=== PATIENT | male | born 1955 | race Caucasian/White ===

== ENCOUNTER 2019-08-09 17:25 | Emergency (ER) | payer OTHER, SELFPAY ==
[2019-08-09 17:31] VITALS: BP 181/83; PULSE 101; RESP 20; TEMP 36.6; O2SAT 99; BMI 27.4
[2019-08-09 18:06] LABS: Add Manual Diff / Slide Review NO; Basophils Absolute Auto 0 /uL (0-100); Basophils Percent Auto 0.5 % (0-2); Eosinophils Absolute Auto 200 /uL (0-450); Eosinophils Percent Auto 3.3 % (2-4); Hematocrit 47.8 % (41-53); Hemoglobin 16.4 g/dL (13.5-17.5); Lymphocytes Absolute Auto 1100 /uL (1100-4500); Lymphocytes Percent Auto 19.8 % (25-40); Mean Corpuscular HGB Conc 34.3 % (30-36); Mean Corpuscular Hemoglobin 32.6 PG (26-34); Mean Corpuscular Volume 95.2 fL (80-100); Monocytes Absolute Auto 400 /uL (0-900); Monocytes Percent Auto 7.5 % (3-14); Neutrophils Absolute Auto 4000 /uL (1500-7000); Neutrophils Percent Auto 68.9 % (50-75); Platelet Count 272 X10^3/uL (150-400); Red Blood Cell Count 5.03 X10^6/uL (4.5-5.9); Red Cell Distribution Width 14.3 % (11.6-14.8); White Blood Cell Count 5.8 X10^3/uL (4.5-11.0)
[2019-08-09 18:08] LABS: Alanine Aminotransferase 37 IU/L (21-72); Albumin 4.2 g/dL (3.5-5.0); Albumin Globulin Ratio 1.3 (1.0-2.8); Alkaline Phosphatase 81 U/L (38-126); Aspartate Aminotransferase 75 IU/L (17-59); Bilirubin Total 0.6 mg/dL (0.2-1.3); Blood Urea Nitrogen 14 mg/dL (9-20); Calcium 9.7 mg/dL (8.4-10.2); Carbon Dioxide 27 mmol/L (22-32); Chloride 100 mmol/L (98-107); Estimated Glomerular Filt Rate > 60.0 mL/min (>60); Globulin 3.2 g/dL (1.7-4.1); Glucose 155 mg/dL (80-110); HEMOLYSIS < 15 (0-50); Potassium 3.8 mmol/L (3.4-5.1); Sodium 142 mmol/L (137-145); Total Protein 7.4 g/dL (6.3-8.2)
[2019-08-09 18:10] LABS: INR 0.8 (0.9-1.3); Prothrombin Time 9.6 SECONDS (10.1-12.7)
[2019-08-09 18:13] LABS: PTT Partial Thromboplastin Tim 29 SECONDS (26.4-36.2)
--- NOTE | 2019-08-09 18:41 | ED_ITS ---
HPI - Abdominal Pain General Chief Complaint: Abdominal Pain Stated Complaint: states anemic Time Seen by Provider: 08/09/19 18:22 Source: patient and family () Mode of arrival: Ambulatory Limitations: no limitations History of Present Illness HPI narrative: This is a 64-year-old male who comes the emergency department stating he thinks that he is anemic. Patient states he has not felt well for the last several months and he has had increasingly felt, he just can't get up, he states does not have any get up and go. He states that he has been leaving work early. Kenji even trying to come the emergency department took his several hours to convince him to come in. Patient states that he has had a history of anemia. This was secondary to GI bleeds from ulcers back in his 20s. He states that he has issues where his gums bleed a lot when he brushes his teeth. He felt very cold in general. His states that he has easy gag reflex but he has not been actively vomiting at any point. Patient states his stools run from constipated diarrhea in back. He has had some slightly increasing frequency over the years with urination but no other changes to urine. He sometimes will have dark stools but the last 1 was months ago this. Patient does not have any swelling in his extremities. he has a description of left chest pain but states that that was ?a long time ago when he lived had [facility] address. Has a history of ulcers, he has had an appendectomy. Quit smoking tobacco many years ago. He drinks 3-6 drinks of hard liquor daily, but denies any illicit. He is to have a PCP but has not followed up in 5 years. He lives with his who is at bedside. 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 Patient does not feel that this is related to his depression. Related Data Allergies Allergy/AdvReac Type Severity Reaction Status Date / Time No Known Drug Allergies Allergy Verified 08/09/19 17:37 Review of Systems Review of Systems ROS Unobtainable: All systems reviewed & are unremarkable except as noted in HPI and below PFSH Surgical History (Updated 08/09/19 @ 19:18 by Sherrell May DO) Hx of appendectomy (Acute) Social History (Updated 08/09/19 @ 19:18 by Sherrell May DO) marital status: Smoking Status: Never smoker alcohol intake: current substance use type: does not use Social History (Updated 08/09/19 @ 19:18 by Sherrell May DO) marital status: Smoking Status: Never smoker alcohol intake: current substance use type: does not use Exam Narrative Exam Narrative: GENERAL: Alert and oriented x three, in mild distress. HEENT: Head normocephalic, atraumatic, EOMI, pupils reactive, face symmetric, no petechiae, no ulcerations, moist mucous membranes NECK: Supple, full range of motion CARDIOVASCULAR: Regular rate and rhythm without murmurs, rubs or gallops. RESPIRATORY: Breath sounds equal bilaterally, no wheezes rales or rhonchi. No tachypnea, no accessory muscle use. ABDOMEN: Soft, nontender. Normoactive bowel sounds all 4 quadrants. No guarding or rebound, rigidity, no mass : No CVA tenderness EXTREMITIES: Normal range of motion, no clubbing or edema. Neurovascularly intact NEUROLOGICAL: Cranial nerves II through XII grossly intact. Moving all extremities SKIN: Warm, dry, no petechiae, no rashes or lesions. Initial Vital Signs Initial Vital Signs: Vital Signs Temperature 97.9 F 08/09/19 17:31 Pulse Rate 101 H 08/09/19 17:31 Respiratory Rate 20 08/09/19 17:31 Blood Pressure 181/83 H 08/09/19 17:31 Pulse Oximetry 99 08/09/19 17:31 Course Orders Ordered: ED Orders 08/09/19 19:19 XR chest 2V Stat Vital Signs Vital signs: Vital Signs - 8 hr 08/09/19 20:15 Pulse Rate 95 H Respiratory Rate 16 Blood Pressure 179/99 H Pulse Oximetry 95 MDM - Abdominal Pain Lab Data Attestation: I reviewed the patient's lab results. Result diagrams: 08/09/19 17:45 08/09/19 17:45 Labs: Lab Results 08/09/19 08/09/19 08/09/19 Range/Units 17:41 17:45 17:45 WBC 5.8 (4.5-11.0) X10^3/uL RBC 5.03 (4.5-5.9) X10^6/uL Hgb 16.4 (13.5-17.5) g/dL Hct 47.8 (41-53) % MCV 95.2 (80-100) fL MCH 32.6 (26-34) PG MCHC 34.3 (30-36) % RDW 14.3 (11.6-14.8) % Plt Count 272 (150-400) X10^3/uL Neut % (Auto) 68.9 (50-75) % Lymph % (Auto) 19.8 L (25-40) % Davie % (Auto) 7.5 (3-14) % Eos % (Auto) 3.3 (2-4) % Baso % (Auto) 0.5 (0-2) % Neut # (Auto) 4000 (4835-2004) /uL Lymph # (Auto) 1100 (6652-9231) /uL Davie # (Auto) 400 (0-900) /uL Eos # (Auto) 200 (0-450) /uL Baso # (Auto) 0 (0-100) /uL PT 9.6 L (10.1-12.7) SECONDS INR 0.8 L (0.9-1.3) APTT 29 (26.4-36.2) SECONDS Sodium (137-145) mmol/L Potassium (3.4-5.1) mmol/L Chloride (98-107) mmol/L Carbon Dioxide (22-32) mmol/L BUN (9-20) mg/dL Creatinine (0.66-1.25) mg/dL Estimated GFR (>60) mL/min BUN/Creatinine Ratio (6-22) Glucose (80-110) mg/dL Calcium (8.4-10.2) mg/dL Total Bilirubin (0.2-1.3) mg/dL AST (17-59) IU/L ALT (21-72) IU/L Alkaline Phosphatase (38-126) U/L Total Creatine Kinase (55-170) U/L CK-MB (CK-2) CK-MB (CK-2) Rel Index Troponin I (0.01-0.034) ng/mL Total Protein (6.3-8.2) g/dL Albumin (3.5-5.0) g/dL Globulin (1.7-4.1) g/dL Albumin/Globulin Ratio (1.0-2.8) Lipase 168 (23-300) U/L TSH (0.47-4.68) uIU/mL Blood Type Antibody Screen 08/09/19 08/09/19 08/09/19 Range/Units 17:45 17:45 17:45 WBC (4.5-11.0) X10^3/uL RBC (4.5-5.9) X10^6/uL Hgb (13.5-17.5) g/dL Hct (41-53) % MCV (80-100) fL MCH (26-34) PG MCHC (30-36) % RDW (11.6-14.8) % Plt Count (150-400) X10^3/uL Neut % (Auto) (50-75) % Lymph % (Auto) (25-40) % Davie % (Auto) (3-14) % Eos % (Auto) (2-4) % Baso % (Auto) (0-2) % Neut # (Auto) (1564-5360) /uL Lymph # (Auto) (9103-1380) /uL Davie # (Auto) (0-900) /uL Eos # (Auto) (0-450) /uL Baso # (Auto) (0-100) /uL PT (10.1-12.7) SECONDS INR (0.9-1.3) APTT (26.4-36.2) SECONDS Sodium 142 (137-145) mmol/L Potassium 3.8 (3.4-5.1) mmol/L Chloride 100 (98-107) mmol/L Carbon Dioxide 27 (22-32) mmol/L BUN 14 (9-20) mg/dL Creatinine 0.70 (0.66-1.25) mg/dL Estimated GFR > 60.0 (>60) mL/min BUN/Creatinine Ratio 20.0 (6-22) Glucose 155 H (80-110) mg/dL Calcium 9.7 (8.4-10.2) mg/dL Total Bilirubin 0.6 (0.2-1.3) mg/dL AST 75 H (17-59) IU/L ALT 37 (21-72) IU/L Alkaline Phosphatase 81 (38-126) U/L Total Creatine Kinase 87 (55-170) U/L CK-MB (CK-2) TNP CK-MB (CK-2) Rel Index TNP Troponin I < 0.012 (0.01-0.034) ng/mL Total Protein 7.4 (6.3-8.2) g/dL Albumin 4.2 (3.5-5.0) g/dL Globulin 3.2 (1.7-4.1) g/dL Albumin/Globulin Ratio 1.3 (1.0-2.8) Lipase (23-300) U/L TSH (0.47-4.68) uIU/mL Blood Type O Positive Antibody Screen Negative 08/09/19 Range/Units 17:45 WBC (4.5-11.0) X10^3/uL RBC (4.5-5.9) X10^6/uL Hgb (13.5-17.5) g/dL Hct (41-53) % MCV (80-100) fL MCH (26-34) PG MCHC (30-36) % RDW (11.6-14.8) % Plt Count (150-400) X10^3/uL Neut % (Auto) (50-75) % Lymph % (Auto) (25-40) % Davie % (Auto) (3-14) % Eos % (Auto) (2-4) % Baso % (Auto) (0-2) % Neut # (Auto) (8716-0581) /uL Lymph # (Auto) (7538-7132) /uL Davie # (Auto) (0-900) /uL Eos # (Auto) (0-450) /uL Baso # (Auto) (0-100) /uL PT (10.1-12.7) SECONDS INR (0.9-1.3) APTT (26.4-36.2) SECONDS Sodium (137-145) mmol/L Potassium (3.4-5.1) mmol/L Chloride (98-107) mmol/L Carbon Dioxide (22-32) mmol/L BUN (9-20) mg/dL Creatinine (0.66-1.25) mg/dL Estimated GFR (>60) mL/min BUN/Creatinine Ratio (6-22) Glucose (80-110) mg/dL Calcium (8.4-10.2) mg/dL Total Bilirubin (0.2-1.3) mg/dL AST (17-59) IU/L ALT (21-72) IU/L Alkaline Phosphatase (38-126) U/L Total Creatine Kinase (55-170) U/L CK-MB (CK-2) CK-MB (CK-2) Rel Index Troponin I (0.01-0.034) ng/mL Total Protein (6.3-8.2) g/dL Albumin (3.5-5.0) g/dL Globulin (1.7-4.1) g/dL Albumin/Globulin Ratio (1.0-2.8) Lipase (23-300) U/L TSH 0.69 (0.47-4.68) uIU/mL Blood Type Antibody Screen Imaging Data Chest x-ray: Radiologist's impression: Diogenes Lobato M [address] [address] XRay Report Signed Patient: Diogenes Lobato AMR#: [id number] : 1955cct:[id number] Age/Sex: 64 / MDate of Service: 08/09/19 Loc: ED Accession Number: [id number] Procedure: XR chest 2V Ordering Provider: Sherrell May D.O. PROCEDURE: XR CHEST 2V INDICATIONS: tired all the time, hx of tob use TECHNIQUE: 2 views of the chest were acquired. COMPARISON: [facility], CR, ABDOMEN ACUTE SERIES, 02/23/2008, 20:14. FINDINGS: Surgical changes and devices: None. Lungs and pleura: Lungs are clear. No pleural effusions or pneumothorax. Mediastinum: Mediastinal contours are normal. Heart size is normal. Bones and chest wall: No suspicious bony abnormalities. Soft tissues appear unremarkable. IMPRESSION: No acute process. Dictated by: Katie Robb M.D. on 08/09/2019 at 19:45 Approved by: Katie Robb M.D. on 08/09/2019 at 19:46 ECG Data Attestation: I personally reviewed and interpreted this ECG as follows: Prior ECG tracings: available for review Interpretation: Sinus tachycardia 104 P are 159 QRS 85 QTC of 404 with nonspecific change. EKG appears similar to 03/11/2010. MDM Narrative Medical decision making narrative: Patient comes in complaining and concern for recurrence of anemia which he has had a past secondary to gastric or duodenal ulcers. Patient's hemoglobin is normal. He is slightly tachycardic and hypertensive. Patient's CV she shows a slightly low lymphocytes, PTT 9.6 with INR of 0.8 with a normal range of 0.9-1.3 and a normal PTT, chemistries show glucose of 155 with an AST elevated at 75 and no other abnormalities. Troponin is negative and TSH normal range. Chest x-ray shows no acute process. Discussed with patient and family am not finding any acute findings. Patient does drink to excess on this may be related to his symptoms as well. He is little bit tachycardic and hypertensive although he denies any prior history of withdrawals and states that he does not drink every single day and has not had withdrawal symptoms in the past. We discussed possible options and he has follow-up with primary care but not until September 04. Was asked to call to set up an appointment sooner. Discharge Plan Departure Patient Disposition: Home Clinical Impression: Fatigue Discharge Date/Time: 08/09/19 20:15 Instructions: DI for Fatigue Activity Restrictions/Additional Instructions: Follow-up with primary care I would recommend calling to see if you could have a earlier appointment time. I would recommend decreasing your alcohol intake as this may be exacerbating your symptoms. Return to the emergency department for fevers greater 100.4 F, passing out, new chest pain or pressure, persistent shortness of breath, persistent vomiting, new swelling in her extremities or other new or concerning symptoms. Referrals: Dixie Snider PA-C [Primary Care Provider] - Leander Randolph MD [Physician] -
[2019-08-09 18:54] LABS: Lipase 168 U/L (23-300)
[2019-08-09 19:09] LABS: Creatine Kinase 87 U/L (55-170)
--- NOTE | 2019-08-09 19:19 | DI.RAD.S_ITS ---
PROCEDURE: XR CHEST 2V INDICATIONS: tired all the time, hx of tob use TECHNIQUE: 2 views of the chest were acquired. COMPARISON: [facility], CR, ABDOMEN ACUTE SERIES, 02/23/2008, 20:14. FINDINGS: Surgical changes and devices: None. Lungs and pleura: Lungs are clear. No pleural effusions or pneumothorax. Mediastinum: Mediastinal contours are normal. Heart size is normal. Bones and chest wall: No suspicious bony abnormalities. Soft tissues appear unremarkable. IMPRESSION: No acute process. Dictated by: Katie Robb M.D. on 08/09/2019 at 19:45 Approved by: Katie Robb M.D. on 08/09/2019 at 19:46
[2019-08-09 19:22] LABS: Troponin I < 0.012 ng/mL (0.01-0.034)
[2019-08-09 19:54] LABS: Thyroid Stimulating Hormone 0.69 uIU/mL (0.47-4.68)
[2019-08-09 20:15] VITALS: BP 179/99; PULSE 95; RESP 16; O2SAT 95
== END 2019-08-09 20:15 | disposition home or self-care (01) ==
PROVIDERS: Emergency Medicine; Emergency Provider Emergency Medicine; Family Provider Internal Medicine; PCP Internal Medicine
DX: R53.83 Other fatigue (principal); R00.0 Tachycardia, unspecified
CPT/HCPCS: 36415; 71046; 80053; 82550; 83690; 84443; 84484; 85025; 85610; 85730; 86850; 86900; 86901; 93005; 99282; 99285

== ENCOUNTER 2020-07-12 00:43 | Emergency (ER) | payer OTHER, SELFPAY ==
[2020-07-12 01:06] VITALS: BP 145/80; PULSE 98; RESP 16; TEMP 36.9; O2SAT 96; BMI 25.8
--- NOTE | 2020-07-12 01:18 | DI.RAD.S_ITS ---
PROCEDURE: XR ANKLE LT MIN 3V INDICATIONS: trauma, pain, edema TECHNIQUE: 3 views of the ankle were acquired. COMPARISON: None. FINDINGS: Bones: Fractures of the medial malleolus, lateral malleolus and posterior malleolus noted. The talus is mildly displaced laterally. Soft tissues: No tibiotalar joint effusion. Achilles tendon appears normal. Circumferential soft tissue swelling. IMPRESSION: Left ankle fracture dislocation. Dictated by: Niki Lea MD, PhD on 07/12/2020 at 8:50 Approved by: Niki Lea MD, PhD on 07/12/2020 at 8:51
--- NOTE | 2020-07-12 01:18 | DI.RAD.S_ITS ---
PROCEDURE: XR FOOT LT MIN 3V INDICATIONS: trauma, pain, edema TECHNIQUE: 3 views of the foot were acquired. COMPARISON: None. FINDINGS: Bones: No foot fractures or dislocations. Trimalleolar left ankle fracture described in detail in the dedicated ankle series redemonstrated. No suspicious bony lesions. Soft tissues: No tibiotalar joint effusion. Achilles tendon appears normal. IMPRESSION: No foot fracture. No foot osseous lesion. If symptoms and/or clinical suspicion for pathology persists, further assessment with repeat radiographs (7-10 days) or advanced imaging (e.g. CT, MRI or bone scan) may be helpful. Dictated by: Niki Lea MD, PhD on 07/12/2020 at 8:51 Approved by: Niki Lea MD, PhD on 07/12/2020 at 8:52
--- NOTE | 2020-07-12 01:19 | ED.LOWEXIN ---
HPI - Extremity Injury (Lower) General Chief Complaint: Extremity Injury, Lower Stated Complaint: left ankle swelling 1 week/fall at home Time Seen by Provider: 07/12/20 00:54 Source: patient and family Mode of arrival: Wheelchair History of Present Illness HPI Narrative: 65-year-old gentleman with no significant medical history presents 8 days after injuring his left foot and ankle. They are in the process of moving and he stumbled over a box landing on the left foot and ankle. He described it is a twisting painful movement. He has used Aleve, elevation and ice. He did try an Roi wrap but found that it was too painful to continue using that. He did continue to work which include standing much of the day and walking on a concrete floor. He was able to walk but is finding it more and more painful. At this point so tender he does not want anything touching at all including his pant leg. The ecchymosis that he described over the outer edge of his foot and ankle has improved significantly there is a bit of ecchymosis extending up the calf with a moderate amount of edema a from the mid calf all the way through to the toes. Related Data Previous Rx's Medication Instructions Recorded oxycodone-acetaminophen 1 - 2 tab PO Q6H PRN #20 tab 07/12/20 Allergies Allergy/AdvReac Type Severity Reaction Status Date / Time No Known Drug Allergies Allergy Verified 08/09/19 17:37 Review of Systems Review of Systems Narrative: Pertinent positive and negative findings as per HPI Remainder of review of systems is otherwise unremarkable for Constitutional: Fevers, chills, weakness ENT: No sore throat, neck pain, ear pain CV: Chest pain, palpitations, dyspnea on exertion Respiratory: Cough, wheeze, dyspnea GI: Nausea, vomiting, diarrhea, change in bowel habits, black or bloody stools : Dysuria, hematuria, flank pain Skin: Rashes, nonhealing lesions Neuro: Syncope, dizziness, tingling Patient History Surgical History Hx of appendectomy (Acute) Social History marital status: Smoking Status: Never smoker alcohol intake: current substance use type: does not use Smoking Status: Never smoker alcohol intake frequency: 0-2 drinks per day Substance Use Type: does not use Exam Narrative Exam Narrative: General: Alert appropriate in no acute distress Respiratory: Able to speak in full sentences, no obvious respiratory distress Skin: No obvious rashes, warm and dry Neurologic: Grossly intact no obvious asymmetries or abnormalities Psych, appropriate insight and affect, cooperative Extremity: Left foot and ankle significantly edematous with tenderness over the midfoot, calcaneus and bilateral malleoli. Increasing tenderness to the slightest touching of his skin surface at all. There is no obvious skin breakdown and he does have good capillary refill distally. At this point he is no longer able to even take a step with the foot. There is no pain or injury to the knee hip low back or upper extremities. Initial Vital Signs Initial Vital Signs: Vital Signs Temperature 98.4 F 07/12/20 01:06 Pulse Rate 98 H 07/12/20 01:06 Respiratory Rate 16 07/12/20 01:06 Blood Pressure 145/80 H 07/12/20 01:06 Pulse Oximetry 96 07/12/20 01:06 Procedures Orthopedic Splinting/Casting Ankle fracture: Side: left Lower Extremity Injury Location: ankle Lower Extremity Immobilizer: boot orthosis Post splinting neuro exam: intact Post splinting vascular exam: intact Placed by: Provider Additional Comments: Tolerating placement of the boot Course Orders Ordered: ED Orders 07/12/20 01:18 XR ankle LT min 3V Stat XR foot LT min 3V Stat Discontinued Medications Oxycodone/Acetaminophen (Percocet 5/325) 1 tab PO NOW ONE Stop: 07/12/20 01:19 Last Admin: 07/12/20 01:33 Dose: 1 tab Documented by: MMCFARL Oxycodone/Acetaminophen (Endocet 5/325 Prepack) 1 bottle MISC SEEINSTR ONE Stop: 07/12/20 02:03 Vital Signs Vital signs: Vital Signs - 8 hr 07/12/20 01:06 Temperature 98.4 F Pulse Rate 98 H Respiratory Rate 16 Blood Pressure 145/80 H Pulse Oximetry 96 MDM - Extremity Injury (Lower) Medical Records Attestation: I reviewed the patient's medical records. Imaging Data X-ray foot: Attestation: I personally reviewed and interpreted this imaging study as follows: My Impression: No acute foot injuries X-ray ankle: Attestation: I personally reviewed and interpreted this imaging study as follows: My Impression: 1. Distal tibial/medial malleolus fracture, minimally displaced 2. Distal fibular/lateral malleolus fracture, displaced comminuted minimally angulated MDM Narrative Medical decision making narrative: 65-year-old gentleman with distal tib and fibular fractures. Injury occurred 8 days ago. He is so swollen and so tender that he does not even want his pant leg touching his foot and he has not tolerated even an Rio wrap. Reluctant to place a short-leg posterior splint due to pain concerns. He is placed and a walking boot and instructed to avoid weight-bearing until he has been seen by Orthopedic surgery. They do have crutches available to them that he has been using this week. Reviewed concerns, importance of follow-up for definitive fracture care, and pain control Safe for home discharge Discharge Plan Departure Patient Disposition: Home Clinical Impression: Ankle fracture Qualifiers: Encounter type: initial encounter Fracture type: closed Laterality: left Qualified Code(s): S82.892A - Other fracture of left lower leg, initial encounter for closed fracture Instructions: DI for Fracture Activity Restrictions/Additional Instructions: Thank you for coming in tonight It turns out that you broke not one, but two bones in your ankle. With the amount of swelling and severe tenderness that you have just touching the skin I opted to put you in an immobilizing boot as a splint rather than are more typical cast like splints. If there is more swelling or the boot feels too tight I do want you to have the option of releasing some of the tension. You will need to follow-up with Dr. Traore, our orthopedist surgeon on-call today. Please call tomorrow to schedule an appointment within the next week. You may end up needing surgery, but the orthopedic surgeon will need to examine you to help determine that. In the meantime, please do continue using the naproxen sodium and with that you can also use 1-2 Percocet every 6 hours for pain. Percocet has narcotic and will make you constipated so please make sure you add a stool softener every day that you take a Percocet. Continuing to keep the ankle and foot elevated and ice on the outside of the splint will be helpful. I would recommend that you not walk on that foot until you have been further evaluated by the orthopedic surgeon. If you have worsening symptoms or new issues that arise, please feel free to return to the emergency department for further evaluation. I hope you heal quickly and your moved to [facility] go smoothly. Prescriptions: New oxycodone-acetaminophen 5-325 mg tablet 1 - 2 tab PO Q6H PRN (Reason: pain) Qty: 20 RF: 0 Referrals: Dixie Snider PA-C [Primary Care Provider] - Edilberto Traore MD [Physician] -
[2020-07-12] MEDS: OXYCODONE/ACETAMINOPHEN 5/325 TABLET 1 TAB PO (01:33)
[2020-07-12] MEDS: OXYCODONE/APAP 5/325 PREPACK 1 BOTTLE MISC (02:11)
== END 2020-07-12 02:20 | disposition home or self-care (01) ==
PROVIDERS: Emergency Provider Emergency Medicine; Family Provider Internal Medicine; PCP Internal Medicine
DX: S82.892A Other fracture of left lower leg, initial encounter for closed fracture (principal); W19.XXXA Unspecified fall, initial encounter
CPT/HCPCS: 73610; 73630; 99283

== ENCOUNTER → 2020-07-17 14:56 | Outpatient (CLI) | payer OTHER, SELFPAY ==
[2020-07-18 15:48] LABS: COVID19 Sendout Not Detected (Not Detect)
== END ==
PROVIDERS: PCP Internal Medicine; Visit Provider Physician Assistant
DX: Z11.59 Encounter for screening for other viral diseases (principal)
CPT/HCPCS: 87635

== ENCOUNTER 2020-07-19 10:25 | Day surgery (SDC) | payer OTHER, SELFPAY ==
[2020-07-16 15:26] VITALS: BMI 25.0
[2020-07-19] VITALS (11 sets, daily range): BP systolic 137–171; BP diastolic 69–87; PULSE 86–96; RESP 12–17; TEMP 36.2–36.8; O2SAT 91–96; BMI 25.8
--- NOTE | 2020-07-19 10:39 | PM.PREOP ---
Pre-operative Note COVID-19 COVID-19 status: Negative Interval Note History & Physical reviewed/Exam performed by Physician: Yes Changes to H&P: No
--- NOTE | 2020-07-19 10:39 | PM.OP.1 ---
Operative Date/Time/Diagnoses Date of procedure: 07/19/20 Time of procedure: 11:40 Pre-op diagnosis: Comminuted left bimalleolar fracture Post-op diagnosis: same Procedure & Clinicians Procedure: Open reduction internal fixation comminuted left bimalleolar fracture Same procedure as scheduled: Yes Indications: This is a 65-year-old gentleman who has a history of a fall and several injuries which date back to 07/03/2020 who presented with a bimalleolar ankle fracture and ongoing pain and difficulty with weight-bearing. Surgeon: Angela Godinez Anesthesia Type: General Operative Notes Closure Type: primary Specimen(s): none sent Prosthetic devices, grafts, tissues, transplants, or devices: nonlocking plate AO Estimated Blood Loss (mL): 200 Tourniquet time (min): 70 Procedure in detail: Patient is brought to the operating room he underwent the induction of a general anesthesia. His left lower extremity was prepped and draped in standard sterile fashion. IV antibiotics was given. Time-out was performed. Tourniquet was elevated to 250 mm of mercury after prepping and draping sterilely. Lateral skin incision was made dissection was carried out through skin and subcutaneous tissues. Gelpi retractors were placed. He had a comminuted fibular fracture which was meticulously fixed with a 7 hole plate. His fracture clearly had partially healed and it was starting to healing in a grossly malunited position. There was comminution off of the anterior aspect of the fibula. I meticulously reduced the fracture basically taking apart the fracture free it up along the fibula distally and and worked hard to get the fibula back out to length after cleaning the lateral gutter. I also opened the medial fracture fragment and anatomically reduced the medial malleolus as well as cleaning out along the medial aspect of the medial fragment in order to allow for reduction of the mortise. The medial side was temporarily stabilized with a K-wire. I then went back and meticulously fixed the fibula. And then returned again to the medial side in order to further stabilizing it with 2 screws. The mortise was checked and noted to be stable on fluoroscopy. The wounds were meticulously irrigated with normal saline. Fluoro showed anatomic reduction in AP lateral and mortise and the wound was closed with interrupted Vicryl and skin soniya. Wound was dressed sterilely and placed in a short-leg bulky Rosen. Postoperative plan nonweightbearing on the left lower extremity. Complications: none Post-operative Condition: stable Disposition: same day surgery Plan for aftercare: Nonweightbearing on the left lower extremity. Return to clinic and 10-14 days for x-rays out of plaster and application of a short-leg cast.
[2020-07-19] MEDS: LACTATED RINGERS 1,000 ML 42 ML IV (10:54)
[2020-07-19] MEDS: CELECOXIB 200 MG CAPSULE 400 MG PO (11:00)
[2020-07-19] MEDS: ACETAMINOPHEN 325 MG TABLET 975 MG PO (11:00)
[2020-07-19] MEDS: CEFAZOLIN 2 GM/100 ML FROZ.PIGGY IV (11:47)
[2020-07-19] MEDS: BUPIVACAINE 0.5% W/ EPI (PF) 30 ML VIAL INJ (12:24)
[2020-07-19] MEDS: ONDANSETRON 4 MG/2 ML INJ IV (14:40)
[2020-07-19] MEDS: OXYCODONE IR 5 MG TABLET PO (14:40)
[2020-07-19] MEDS: HYDROMORPHONE 2 MG INJ IV (14:43)
== END 2020-07-19 16:00 | disposition home or self-care (01) ==
PROVIDERS: PCP Internal Medicine; Referring Provider Internal Medicine; Visit Provider Orthopaedic Surgery
PROC: (CPT 27814; principal; 2020-07-19 11:00)
DX: S82.842A Displaced bimalleolar fracture of left lower leg, initial encounter for closed fracture (principal); W01.198A Fall on same level from slipping, tripping and stumbling with subsequent striking against other object, initial encounter; M19.90 Unspecified osteoarthritis, unspecified site; J45.909 Unspecified asthma, uncomplicated; K21.9 Gastro-esophageal reflux disease without esophagitis
CPT/HCPCS: 27814; J0690; J1100; J1170; J2250; J2405; J2704; J3010

== ENCOUNTER → 2020-07-23 18:44 | Outpatient (ROUT) | payer OTHER, SELFPAY ==
[2020-07-23 19:16] LABS: Aspartate Aminotransferase 56 IU/L (17-59); BUN Creatinine Ratio 20.3 (6-22); Blood Urea Nitrogen 13 mg/dL (9-20); Calcium 8.6 mg/dL (8.4-10.2); Carbon Dioxide 28 mmol/L (22-32); Chloride 101 mmol/L (98-107); Cholesterol 161 mg/dL (140-199); Estimated Glomerular Filt Rate > 60.0 mL/min (>60); Glucose 90 mg/dL (80-110); HEMOLYSIS < 15 (0-50); Potassium 4.2 mmol/L (3.4-5.1); Sodium 140 mmol/L (137-145); Triglycerides 160 mg/dL (35-150)
[2020-07-23 19:23] LABS: HDL Cholesterol 105 mg/dL (40-60); LDL Cholesterol Calculated 24 mg/dL (<100)
[2020-07-25 08:09] LABS: Var-Zoster Immunity Screen <135 index (Immune >165)
== END ==
PROVIDERS: PCP Internal Medicine; Visit Provider Internal Medicine
DX: Z00.00 Encounter for general adult medical examination without abnormal findings (principal); I10 Essential (primary) hypertension; E78.2 Mixed hyperlipidemia; Z20.9 Contact with and (suspected) exposure to unspecified communicable disease
CPT/HCPCS: 80048; 80061; 84153; 84450; 86787

== ENCOUNTER → 2020-12-02 19:21 | Outpatient (ROUT) | payer OTHER, SELFPAY ==
[2020-12-02 20:10] LABS: Add Manual Diff / Slide Review NO; Basophils Absolute Auto 0 /uL (0-100); Basophils Percent Auto 0.9 % (0-2); Eosinophils Absolute Auto 100 /uL (0-450); Eosinophils Percent Auto 1.5 % (2-4); Hematocrit 40.3 % (41-53); Hemoglobin 13.8 g/dL (13.5-17.5); Lymphocytes Absolute Auto 800 /uL (1100-4500); Lymphocytes Percent Auto 15.7 % (25-40); Mean Corpuscular HGB Conc 34.2 % (30-36); Mean Corpuscular Hemoglobin 32.5 PG (26-34); Mean Corpuscular Volume 95.1 fL (80-100); Monocytes Absolute Auto 400 /uL (0-900); Monocytes Percent Auto 7.4 % (3-14); Neutrophils Absolute Auto 3700 /uL (1500-7000); Neutrophils Percent Auto 74.5 % (50-75); Platelet Count 211 X10^3/uL (150-400); Red Blood Cell Count 4.24 X10^6/uL (4.5-5.9); Red Cell Distribution Width 13.2 % (11.6-14.8)
[2020-12-02 20:26] LABS: BUN Creatinine Ratio 18.9 (6-22); Blood Urea Nitrogen 10 mg/dL (9-20); C-Reactive Protein Quant 2.9 mg/dL (<1.0); Calcium 8.9 mg/dL (8.4-10.2); Carbon Dioxide 30 mmol/L (22-32); Chloride 99 mmol/L (98-107); Estimated Glomerular Filt Rate > 60.0 mL/min (>60); Glucose 111 mg/dL (80-110); HEMOLYSIS < 15 (0-50); Potassium 3.6 mmol/L (3.4-5.1); Sodium 134 mmol/L (137-145)
[2020-12-02 20:33] LABS: Erythrocyte Sedimentation Rate 7 MM/HR (0-15)
== END ==
PROVIDERS: PCP Internal Medicine; Visit Provider Internal Medicine
DX: M86.672 Other chronic osteomyelitis, left ankle and foot (principal)
CPT/HCPCS: 80048; 85025; 85651; 86140

== ENCOUNTER → 2021-01-13 08:44 | Outpatient (CLI) | payer OTHER, SELFPAY ==
--- NOTE | 2021-01-13 | DI.MG.S_ITS ---
MALE BILATERAL DIGITAL DIAGNOSTIC MAMMOGRAM 3D/2D: 01/13/2021 CLINICAL: Left breast painful lump. No prior exams were available for comparison. There is gynecomastia in the left breast that is asymmetric compared to the right side, but is diffuse. This may correlate with palpable abnormality, however does not fit the description given of a hard, pea-sized lump. No significant masses, calcifications, or other findings are seen in either breast. IMPRESSION: INCOMPLETE: NEEDS ADDITIONAL IMAGING EVALUATION Asymmetric gynecomastia may account for the palpable abnormality in the left breast, but there is a size discrepancy between the finding and palpable description. Ultrasound is recommended for full evaluation of this area. This was not able to be performed following this exam and will be scheduled as soon as possible. Findings and recommendations were conveyed to the patient at time of exam. This exam was interpreted at Station ID: [id number]. NOTE: For mammograms, a report in lay terms will be sent to the patient. Approximately 15% of breast malignancies will not be visualized mammographically. In the management of a palpable breast mass, a negative mammogram must not discourage biopsy of a clinically suspicious lesion. Electronically Signed By: Lorena mead/:01/14/2021 08:55:22 letter sent: Need Ultrasound ACR BI-RADS Category 0: Incomplete [id number]
--- NOTE | 2021-01-13 | DI.NM.S_ITS ---
PROCEDURE: NM BONE 3 PHASE RADIOPHARMACEUTICAL: 19.5 mCi Tc-99m MDP IV. INDICATIONS: chronic osteomyelitis, TECHNIQUE: Multiple bone scintigrams were obtained after intravenous injection of Tc-99m MDP, including flow, blood pool, and delayed images centered to the region of interest. COMPARISON: [facility], CR, XR FOOT 3+ VIEWS LEFT, 10/30/2020, 14:19. [facility], CR, XR ANKLE 1 OR 2 VIEWS LEFT, 10/30/2020, 14:22. FINDINGS: There is asymmetric increased periarticular uptake along the left ankle on blood flow and blood pool images. On delayed imaging, there is asymmetric periarticular uptake along the tibiotalar joint as well as in the distal fibula. IMPRESSION: 1. Increased periarticular three-phase uptake along the left ankle compatible with osteomyelitis. Dictated by: Ricardo Galvan M.D. on 01/13/2021 at 17:35 Approved by: Ricardo Galvan M.D. on 01/13/2021 at 17:39
== END ==
PROVIDERS: PCP Internal Medicine; Referring Provider Internal Medicine; Visit Provider Internal Medicine
DX: M86.672 Other chronic osteomyelitis, left ankle and foot (principal); R92.8 Other abnormal and inconclusive findings on diagnostic imaging of breast; N62 Hypertrophy of breast
CPT/HCPCS: 77066; 78315; A9503; G0279

== ENCOUNTER → 2022-02-25 10:50 | Outpatient (CLI) | payer MEDICARE, SELFPAY ==
[2022-02-25 13:07] LABS: Hemoglobin 14.3 g/dL (13.5-17.5); Mean Corpuscular HGB Conc 33.4 % (30-36); Mean Corpuscular Volume 89.8 fL (80-100); Platelet Count 254 X10^3/uL (150-400); Red Blood Cell Count 4.78 X10^6/uL (4.5-5.9); Red Cell Distribution Width 13.6 % (11.6-14.8); White Blood Cell Count 4.5 X10^3/uL (4.5-11.0)
[2022-02-25 14:01] LABS: Alanine Aminotransferase 18 IU/L (<50); Albumin Globulin Ratio 1.7 (1.0-2.8); Alkaline Phosphatase 77 U/L (38-126); Aspartate Aminotransferase 27 IU/L (17-59); BUN Creatinine Ratio 20.9 (6-22); Bilirubin Total 0.4 mg/dL (0.2-1.3); Blood Urea Nitrogen 18 mg/dL (9-20); Carbon Dioxide 33 mmol/L (22-32); Chloride 101 mmol/L (98-107); Cholesterol 227 mg/dL (140-199); Estimated Glomerular Filt Rate > 60 mL/min (>60); Globulin 2.3 g/dL (1.7-4.1); Glucose 99 mg/dL (80-110); HDL Cholesterol 72 mg/dL (40-60); HEMOLYSIS < 15 (0-50); LDL Cholesterol Calculated 96 mg/dL (<100); Potassium 4.7 mmol/L (3.4-5.1); Sodium 137 mmol/L (137-145); Total Protein 6.3 g/dL (6.3-8.2); Triglycerides 293 mg/dL (35-150)
[2022-02-25 14:31] LABS: TSH w/ Reflex to FT4 2.16 uIU/mL (0.47-4.68)
[2022-02-25 14:33] LABS: Testosterone 63.3 ng/dL (71.8-623)
== END ==
PROVIDERS: PCP Internal Medicine; Referring Provider Internal Medicine; Visit Provider Internal Medicine
DX: K21.9 Gastro-esophageal reflux disease without esophagitis (principal); E78.2 Mixed hyperlipidemia; Z12.5 Encounter for screening for malignant neoplasm of prostate; M15.9 Polyosteoarthritis, unspecified
CPT/HCPCS: 36415; 80053; 80061; 84403; 84443; 85027; G0103

== ENCOUNTER → 2022-05-28 08:51 | Outpatient (CLI) | payer MEDICARE, SELFPAY ==
[2022-05-28 10:43] LABS: Follicle Stimulating Hormone 3.06 mIU/mL
[2022-05-28 10:50] LABS: Prolactin 9.1 ng/mL (3.7-17.9)
[2022-05-28 11:06] LABS: Testosterone 178 ng/dL (71.8-623)
== END ==
PROVIDERS: PCP Internal Medicine; Referring Provider Internal Medicine; Visit Provider Internal Medicine
DX: D35.2 Benign neoplasm of pituitary gland (principal)
CPT/HCPCS: 83001; 83002; 84146; 84403

== ENCOUNTER → 2022-11-27 09:30 | Outpatient (CLI) | payer MEDICARE, SELFPAY ==
[2022-11-27 11:23] LABS: Hematocrit 44.8 % (41-53); Hemoglobin 15.4 g/dL (13.5-17.5); Mean Corpuscular HGB Conc 34.3 % (30-36); Mean Corpuscular Hemoglobin 30.6 PG (26-34); Mean Corpuscular Volume 89.1 fL (80-100); Platelet Count 293 X10^3/uL (150-400); Red Blood Cell Count 5.03 X10^6/uL (4.5-5.9); Red Cell Distribution Width 13.8 % (11.6-14.8); White Blood Cell Count 5.5 X10^3/uL (4.5-11.0)
[2022-11-27 11:47] LABS: Alanine Aminotransferase 20 IU/L (<50); Albumin 4.5 g/dL (3.5-5.0); Albumin Globulin Ratio 1.4 (1.0-2.8); Alkaline Phosphatase 78 U/L (38-126); Aspartate Aminotransferase 24 IU/L (17-59); BUN Creatinine Ratio 29.2 (6-22); Bilirubin Total 0.5 mg/dL (0.2-1.3); Blood Urea Nitrogen 21 mg/dL (9-20); Calcium 10.4 mg/dL (8.4-10.2); Carbon Dioxide 24 mmol/L (22-32); Chloride 103 mmol/L (98-107); Cholesterol 277 mg/dL (140-199); Estimated Glomerular Filt Rate > 60 mL/min (>60); Globulin 3.3 g/dL (1.7-4.1); Glucose 91 mg/dL (80-110); HDL Cholesterol 75 mg/dL (40-60); HEMOLYSIS < 15 (0-50); LDL Cholesterol Calculated 163 mg/dL (<100); Potassium 4.6 mmol/L (3.4-5.1); Sodium 137 mmol/L (137-145); Total Protein 7.8 g/dL (6.3-8.2); Triglycerides 197 mg/dL (35-150)
[2022-11-27 12:16] LABS: Prostate Specific Antigen 1.02 ng/mL (0.10-4.00)
[2022-11-27 12:18] LABS: Testosterone 159 ng/dL (71.8-623)
== END ==
PROVIDERS: PCP Internal Medicine; Referring Provider Internal Medicine; Visit Provider Internal Medicine
DX: E29.1 Testicular hypofunction (principal); N52.1 Erectile dysfunction due to diseases classified elsewhere; Z80.42 Family history of malignant neoplasm of prostate
CPT/HCPCS: 36415; 80053; 80061; 84153; 84403; 85027

== ENCOUNTER → 2023-02-12 09:57 | Outpatient (CLI) | payer MEDICARE, SELFPAY ==
[2023-02-12 10:49] LABS: Hematocrit 41.7 % (41-53); Hemoglobin 14.5 g/dL (13.5-17.5); Mean Corpuscular HGB Conc 34.8 % (30-36); Mean Corpuscular Hemoglobin 30.8 PG (26-34); Mean Corpuscular Volume 88.4 fL (80-100); Platelet Count 244 X10^3/uL (150-400); Red Blood Cell Count 4.72 X10^6/uL (4.5-5.9); Red Cell Distribution Width 13.7 % (11.6-14.8); White Blood Cell Count 7.3 X10^3/uL (4.5-11.0)
[2023-02-12 11:11] LABS: Alanine Aminotransferase 17 IU/L (<50); Albumin 3.9 g/dL (3.5-5.0); Albumin Globulin Ratio 1.4 (1.0-2.8); Alkaline Phosphatase 80 U/L (38-126); Aspartate Aminotransferase 20 IU/L (17-59); BUN Creatinine Ratio 23.8 (6-22); Bilirubin Total 0.7 mg/dL (0.2-1.3); Blood Urea Nitrogen 20 mg/dL (9-20); Calcium 9.3 mg/dL (8.4-10.2); Carbon Dioxide 31 mmol/L (22-32); Chloride 99 mmol/L (98-107); Estimated Glomerular Filt Rate > 60 mL/min (>60); Globulin 2.8 g/dL (1.7-4.1); Glucose 101 mg/dL (80-110); HEMOLYSIS < 15 (0-50); Potassium 4.5 mmol/L (3.4-5.1); Sodium 137 mmol/L (137-145); Total Protein 6.7 g/dL (6.3-8.2)
== END ==
PROVIDERS: PCP Internal Medicine; Referring Provider Internal Medicine; Visit Provider Internal Medicine
DX: E29.1 Testicular hypofunction (principal); E78.2 Mixed hyperlipidemia
CPT/HCPCS: 36415; 80053; 84443; 85027

== ENCOUNTER → 2023-11-30 09:22 | Outpatient (CLI) | payer MEDICARE, MEDICAID, SELFPAY ==
[2023-11-30 10:26] LABS: Hematocrit 42.2 % (41-53); Hemoglobin 14.5 g/dL (13.5-17.5); Mean Corpuscular HGB Conc 34.5 % (30-36); Mean Corpuscular Hemoglobin 30.5 PG (26-34); Mean Corpuscular Volume 88.5 fL (80-100); Platelet Count 241 X10^3/uL (150-400); Red Blood Cell Count 4.77 X10^6/uL (4.5-5.9); Red Cell Distribution Width 13.2 % (11.6-14.8)
[2023-11-30 10:59] LABS: Alanine Aminotransferase 24 IU/L (<50); Albumin Globulin Ratio 1.5 (1.0-2.8); Alkaline Phosphatase 74 U/L (38-126); Aspartate Aminotransferase 34 IU/L (17-59); BUN Creatinine Ratio 23.7 (6-22); Bilirubin Total 0.7 mg/dL (0.2-1.3); Blood Urea Nitrogen 18 mg/dL (9-20); Calcium 9.6 mg/dL (8.4-10.2); Carbon Dioxide 30 mmol/L (22-32); Chloride 100 mmol/L (98-107); Cholesterol 204 mg/dL (140-199); Estimated Glomerular Filt Rate > 60 mL/min (>60); Globulin 2.6 g/dL (1.7-4.1); Glucose 122 mg/dL (80-110); HDL Cholesterol 72 mg/dL (40-60); HEMOLYSIS < 15 (0-50); LDL Cholesterol Calculated 66 mg/dL (<100); Potassium 4.2 mmol/L (3.4-5.1); Sodium 137 mmol/L (137-145); Total Protein 6.6 g/dL (6.3-8.2); Triglycerides 329 mg/dL (35-150)
[2023-11-30 11:22] LABS: Prostate Specific Antigen 1.04 ng/mL (0.10-4.00)
[2023-11-30 11:25] LABS: Testosterone 126 ng/dL (71.8-623)
== END ==
LOC: LAB 09:24
PROVIDERS: PCP Internal Medicine; Referring Provider Internal Medicine; Visit Provider Internal Medicine
DX: Z80.42 Family history of malignant neoplasm of prostate (principal); I10 Essential (primary) hypertension; E29.1 Testicular hypofunction; E78.2 Mixed hyperlipidemia
CPT/HCPCS: 36415; 80053; 80061; 84153; 84403; 85027

== ENCOUNTER → 2024-06-05 10:45 | Outpatient (CLI) | payer MEDICARE, MEDICAID, SELFPAY ==
[2024-06-05 11:48] LABS: Hematocrit 44.7 % (41-53); Hemoglobin 15.1 g/dL (13.5-17.5); Mean Corpuscular HGB Conc 33.7 % (30-36); Mean Corpuscular Hemoglobin 31.3 PG (26-34); Mean Corpuscular Volume 92.8 fL (80-100); Platelet Count 328 X10^3/uL (150-400); Red Blood Cell Count 4.81 X10^6/uL (4.5-5.9); Red Cell Distribution Width 14.5 % (11.6-14.8); White Blood Cell Count 6.9 X10^3/uL (4.5-11.0)
[2024-06-05 21:22] LABS: BUN Creatinine Ratio 14.9 (6-22); Blood Urea Nitrogen 13 mg/dL (9-20); Calcium 9.9 mg/dL (8.4-10.2); Carbon Dioxide 31 mmol/L (22-32); Chloride 101 mmol/L (98-107); Estimated Glomerular Filt Rate > 60 mL/min (>60); Glucose 93 mg/dL (80-110); HEMOLYSIS < 15 (0-50); Potassium 4.5 mmol/L (3.4-5.1); Sodium 138 mmol/L (137-145)
[2024-06-05 22:01] LABS: Testosterone 893 ng/dL (71.8-623)
== END ==
PROVIDERS: PCP Internal Medicine; Referring Provider Internal Medicine; Visit Provider Internal Medicine
DX: E29.1 Testicular hypofunction (principal); I10 Essential (primary) hypertension
CPT/HCPCS: 36415; 80048; 84153; 84403; 85027

== ENCOUNTER → 2024-12-11 08:52 | Outpatient (CLI) | payer MEDICARE, MEDICAID, SELFPAY ==
[2024-12-11 09:34] LABS: Hematocrit 46.6 % (41-53); Hemoglobin 15.7 g/dL (13.5-17.5); Mean Corpuscular HGB Conc 33.8 % (30-36); Mean Corpuscular Hemoglobin 31.5 PG (26-34); Mean Corpuscular Volume 93.1 fL (80-100); Platelet Count 314 X10^3/uL (150-400); Red Cell Distribution Width 13.8 % (11.6-14.8); White Blood Cell Count 5.6 X10^3/uL (4.5-11.0)
[2024-12-11 10:00] LABS: Alanine Aminotransferase 34 IU/L (<50); Albumin 4.5 g/dL (3.5-5.0); Albumin Globulin Ratio 1.7 (1.0-2.8); Alkaline Phosphatase 71 U/L (38-126); Aspartate Aminotransferase 39 IU/L (17-59); BUN Creatinine Ratio 19.8 (6-22); Bilirubin Total 0.7 mg/dL (0.2-1.3); Blood Urea Nitrogen 17 mg/dL (9-20); Calcium 9.5 mg/dL (8.4-10.2); Carbon Dioxide 29 mmol/L (22-32); Chloride 102 mmol/L (98-107); Cholesterol 235 mg/dL (140-199); Estimated Glomerular Filt Rate > 60 mL/min (>60); Globulin 2.6 g/dL (1.7-4.1); Glucose 110 mg/dL (80-110); HDL Cholesterol 80 mg/dL (40-60); HEMOLYSIS < 15 (0-50); Potassium 4.4 mmol/L (3.4-5.1); Sodium 136 mmol/L (137-145); Total Protein 7.1 g/dL (6.3-8.2)
[2024-12-11 10:09] LABS: Triglycerides 653 mg/dL (35-150)
[2024-12-11 10:16] LABS: Vitamin D 25 Hydroxy (D3) 17.3 ng/mL (30.0-100.0)
[2024-12-11 10:29] LABS: Prostate Specific Antigen 1.73 ng/mL (0.10-4.00)
[2024-12-11 10:32] LABS: Testosterone 82.5 ng/dL (71.8-623)
== END ==
PROVIDERS: PCP Internal Medicine; Referring Provider Internal Medicine; Visit Provider Internal Medicine
DX: E78.2 Mixed hyperlipidemia (principal); E55.9 Vitamin D deficiency, unspecified; E29.1 Testicular hypofunction; Z80.42 Family history of malignant neoplasm of prostate
CPT/HCPCS: 36415; 80053; 80061; 82306; 84153; 84403; 85027